=== PATIENT | female | born 1985 | race Caucasian/White ===

== ENCOUNTER 2017-04-11 20:12 | Emergency (ER) | payer MEDICAID ==
[~2017-04-11] VITALS: Ht 154.9 cm; Wt 77.0 kg
[~2017-04-11 20:12] MED LIST: HYDR25TA PO
[2017-04-11] MEDS ORDERED: LISI-660 PO (20:26)
[2017-04-11] MEDS ORDERED: DiphenhydrAMINE HCL 50 MG/ML VIAL IM ONE (21:00)
[2017-04-11] MEDS ORDERED: KETOROLAC TROMETHAMINE 30 MG/ML VIAL IM ONE (21:00)
[2017-04-11] MEDS ORDERED: METOCLOPRAMIDE HCL 5 MG/ML 2 ML VIAL IM ONE (21:00)
[2017-04-11 21:49] VITALS: BP 136/88
== END 2017-04-11 21:55 | disposition home or self-care (01) ==
LOC: EMS 20:13
DX: G43.909 Migraine, unspecified, not intractable, without status migrainosus (principal); I10 Essential (primary) hypertension
CPT/HCPCS: 96372; 99284; J1200; J1885; J2765